=== PATIENT | male | born 1990 | race Caucasian/White ===

== ENCOUNTER 2019-11-01 21:46 | Emergency (ER) | payer BC ==
[~2019-11-01] VITALS: Ht 175.3 cm; Wt 88.5 kg
[2019-11-02] MEDS ORDERED: OSEL75CA PO (03:55)
[2019-11-02] MEDS ORDERED: ZYNCOF 20-400120 ML PO (03:55)
== END 2019-11-02 04:19 | disposition home or self-care (01) ==
LOC: ER 21:46
DX: B34.9 Viral infection, unspecified (principal); R50.9 Fever, unspecified